=== PATIENT | female | born 1960 | race Caucasian/White ===

== ENCOUNTER 2017-06-22 08:48 | Day surgery (SDC) | payer OTHER, SELFPAY ==
[2016-06-09 11:28] VITALS: BMI 45.6
[2017-06-22] MEDS ORDERED: Lactated Ringer's 1,000 ML IV ONE (09:49)
[2017-06-22] MEDS ORDERED: Propofol 10 mg/ml Inj (20 ML) ONE (12:34)
[2017-06-22] MEDS ORDERED: Midazolam 2 MG/2 ML VIAL ONE (12:34)
[2017-06-22 13:14] VITALS: TEMP 98
[2017-06-22 13:15] VITALS: BP 138/84; PULSE 86; RESP 16; O2SAT 100
== END 2017-06-22 13:38 | disposition home or self-care (01) ==
LOC: H.ENDO 08:48
PROVIDERS: ATTEND Internal Medicine Gastroenterology
DX: K29.00 Acute gastritis without bleeding (principal); K29.50 Unspecified chronic gastritis without bleeding; K31.7 Polyp of stomach and duodenum; K21.9 Gastro-esophageal reflux disease without esophagitis
CPT/HCPCS: 43239; 82948; 88305; J2250; J2704; J7120

== ENCOUNTER 2017-09-22 11:23 | Emergency (ER) | payer OTHER ==
[2017-09-22 11:23] VITALS: BMI 45.6
[2017-09-22 11:48] VITALS: BP 146/79; PULSE 83; RESP 20; TEMP 99.2; O2SAT 95
--- NOTE | 2017-09-22 12:35 | ED PDOC ---
Upper Extremity Pain/Injury Time Seen by Provider: 09/22/17 12:29 Chief Complaint (Nursing): Upper Extremity Problem/Injury Chief Complaint (Provider): Right shoulder pain History Per: Patient History/Exam Limitations: no limitations Onset/Duration Of Symptoms: Days (x 1 week) Current Symptoms Are (Timing): Still Present Additional Complaint(s): Patient is a 57 y/o female with a past medical history of hypertension and gastritis, who presents complaining of ongoing right shoulder pain for 1 week. States she is unsure whether she slept on it in a weird position. Denies any fall or trauma. Taking Advil without relief. Patient expresses concern that she may have bursitis and wants to see a specialist to place a needle in the joint for fluid removal. PMD: Dr. Garrett Sorensen Past Medical History Reviewed: Historical Data, Nursing Documentation, Vital Signs Vital Signs: Last Vital Signs Temp 99.2 F 09/22/17 11:45 Pulse 83 09/22/17 11:45 Resp 20 09/22/17 11:45 BP 146/79 09/22/17 11:45 Pulse Ox 95 09/22/17 11:45 - Medical History PMH: Anxiety, Diabetes, Gastritis, HTN Denies: Chronic Kidney Disease - Surgical History Surgical History: Cholecystectomy - Family History Family History: States: Unknown Family Hx - Social History Current smoker - smoking cessation education provided: No Alcohol: None Drugs: Denies - Home Medications Home Medications: Ambulatory Orders Medication Instructions Recorded Lisinopril/Hydrochlorothiazide 1 tab PO DAILY 06/22/17 [Lisinopril-Hctz 10-12.5 mg Tab] Losartan [Cozaar] 1 tab PO DAILY 06/22/17 metFORMIN [glucOPHAGE] 1 tab PO DAILY 06/22/17 Naproxen 1 tab PO Q12 PRN #14 tab 09/22/17 Omeprazole 40 mg PO DAILY #15 capsule. 09/22/17 Tramadol HCl [Ultram] 50 mg PO Q12 PRN #8 tab 09/22/17 - Allergies Allergies/Adverse Reactions: Allergies Allergy/AdvReac Type Severity Reaction Status Date / Time No Known Allergies Allergy Verified 06/22/17 09:44 Review of Systems ROS Statement: Except As Marked, All Systems Reviewed And Found Negative Cardiovascular: Negative for: Chest Pain Respiratory: Negative for: Shortness of Breath Musculoskeletal: Positive for: Shoulder Pain (right). Negative for: Arm Pain Skin: Negative for: Bruising Neurological: Negative for: Numbness (and tingling) Physical Exam - Reviewed Nursing Documentation Reviewed: Yes Vital Signs Reviewed: Yes - Physical Exam Appears: Positive for: Non-toxic, No Acute Distress Head Exam: Positive for: ATRAUMATIC, NORMAL INSPECTION, NORMOCEPHALIC Skin: Positive for: Normal Color, Warm, Dry Eye Exam: Positive for: EOMI, Normal appearance, PERRL Neck: Positive for: Normal Cardiovascular/Chest: Positive for: Regular Rate, Rhythm Respiratory: Negative for: Respiratory Distress Extremity: Positive for: Tenderness (to the right subscapular region and anterior proximal humerus. No AC joint tenderness or bony point tenderness), Other (Patient able to touch shoulder and place hand behind head, with difficulty). Negative for: Deformity, Swelling Neurologic/Psych: Positive for: Alert, Oriented (x3) - ECG O2 Sat by Pulse Oximetry: 95 (RA) Pulse Ox Interpretation: Normal - Progress ED Course And Treament: xry shoulder: no fx Shoulder sling given. Medical Decision Making Medical Decision Making: Initial Impression: Right shoulder pain Time: 12:31 Initial Plan: --Toradol 30 mg IM --X-Ray Right Shoulder Scribe Attestation: Documented by Jessy Vaughn, acting as a scribe for Luciano Craig PA-C Provider Scribe Attestation: All medical record entries made by the Scribe were at my direction and personally dictated by me. I have reviewed the chart and agree that the record accurately reflects my personal performance of the history, physical exam, medical decision making, and the department course for this patient. I have also personally directed, reviewed, and agree with the discharge instructions and disposition. Disposition - Clinical Impression Clinical Impression: Shoulder pain - Patient ED Disposition Is Patient to be Admitted: No - Disposition Referrals: Robin Gann MD [Medical Doctor] - Disposition: Routine/Home Disposition Time: 13:36 Condition: FAIR Prescriptions: Naproxen 1 tab PO Q12 PRN #14 tab PRN Reason: Pain, Moderate (4-7) Omeprazole 40 mg PO DAILY #15 capsule. Tramadol HCl [Ultram] 50 mg PO Q12 PRN #8 tab PRN Reason: Pain, Severe (8-10) Forms: Puuilo (Japanese) Print Language: FILIPINO
--- NOTE | 2017-09-22 12:52 | RAD ---
PROCEDURE: Radiographs of the Right Shoulder HISTORY: shoulder pain COMPARISON: No prior. FINDINGS: BONES: No acute fracture. JOINTS: Unremarkable. SOFT TISSUES: Normal. OTHER FINDINGS: None. IMPRESSION: No demonstrated fracture or dislocation.
== END 2017-09-22 14:19 | disposition home or self-care (01) ==
LOC: H.ER 11:23
DX: M25.511 Pain in right shoulder (principal); I10 Essential (primary) hypertension
CPT/HCPCS: 73030; 96372; 99282; J1885